=== PATIENT | male | born 1955 | race Caucasian/White ===

== ENCOUNTER 2016-09-25 11:54 | Day surgery (SDC) | payer BC ==
[~2016-09-25 11:54] MED LIST: NORMAL SALINE 1,000 ML IV PRN
--- OUTSIDE RECORDS SUMMARY | 2016-09-25 11:58 | XMS REPORT | Continuity of Care Document ---
:1955 Author Organization [employer] [place] [address] Care Team Providers Name Role Phone Unavailable Primary Care Provider Unavailable Source Comments This disclosure is being made pursuant to the Dejam[employer] program and maynot contain all information available regarding this patient.[employer] Active Allergies and Adverse Reactions Not on File Current Medications Be aware that medications may not be up to date as of this document. Alwaysverify current medications with the patient. Not on file Active Problems Not on file Social History Tobacco Use Types Packs/Day Years Used Date Never Assessed Plan of Care Health Maintenance Due Date Last Done Comments Retired-Pertussis Vaccine Adult 01/02/1975 Retired-Tetanus Vaccine Adult 01/02/1975 Colonoscopy 01/02/2006 Well Adult Visit 01/02/2006 Retired-INFLUENZA VACCINE 01/31/2015 Results from Last 3 Months Not on file
--- OUTSIDE RECORDS SUMMARY | 2016-09-25 11:58 | XMS REPORT | Continuity of Care Document ---
:1955 Author Organization [facility] ([facility]) [place] [address] Phone [phone] Care Team Providers Name Role Phone Tyron Limon Primary Care Provider [phone] Source Comments This disclosure is being made pursuant to the Care Everywhere program, applicable federal and state laws, and may not contain all informaitonavailable regarding this patient.[facility] ([facility]) Active Allergies and Adverse Reactions Allergen Noted Date Severity Reactions Comments Penicillins 10/14/2008 Rash Current Medications Prescription Sig. Disp. Refills Start Date End Date Status atorvastatin take 80 mg by mouth Active (LIPITOR) 80 mg daily. tablet OMEGA-3 ACID ETHYL take 4 Caps by mouth Active ESTERS (LOVAZA PO) daily. indomethacin (INDOCIN take 1 Cap by mouth 2 60 Cap 11 10/14/2008 Active SR) 75 mg SR capsule times daily as needed. Indications: Gout clopidogrel (PLAVIX) take 75 mg by mouth Active 75 mg tablet daily. metoPROLol take 12.5 mg by mouth Active (LOPRESSOR) 25 mg 2 times daily. tablet aspirin 325 mg EC take 325 mg by mouth Active tablet daily. allopurinol Take 1.5 Tabs by mouth 45 Tab 11 09/25/2009 Active (ZYLOPRIM) 300 mg daily. Indications: tablet Gouty Arthritis, Hyperuricemia colchicine 0.6 mg Take 1 Tab by mouth 30 Tab 11 09/25/2009 Active tablet daily. (Stop if diarrhea occurs), Indications: Gout Prevention Active Problems Problem Noted Date Coronary artery disease 04/04/2009 Overview: New chest pain in January 2009, now s/p angiogram and stent placement (LAD and L main?), with subsequent resolution of chest pain. (Dr. Balta [place]). Hyperuricemia 10/14/2008 Hyperlipidemia 10/14/2008 Overview: Treated with a statin (currently Lipitor) since at least 2003. Eczema 10/14/2008 Overview: vs. psoriasis. Chronic since August 2007. 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 RX history: indomethacin prn; colchcine 09/2008 - allopurinol 09/2008- Social History Tobacco Use Types Packs/Day Years Used Date Former Smoker 30 Quit: 02/25/2009 Comments:quit cigarets in 1995; quit cigars 2008. Alcohol Use Drinks/Week oz/Week Comments Yes 20 Cans of beer 10.0 Last Filed Vital Signs Vital Sign Reading Time Taken Blood Pressure 139/72 09/25/2009 10:33 AM CDT Pulse 64 09/25/2009 10:33 AM CDT Temperature 36.7 C (98.1 F) 09/25/2009 10:33 AM CDT Respiratory Rate - - Height 1.88 m (6' 2.02") 10/14/2008 8:35 AM CDT Weight 105.5 kg (232 lb 9.4 oz) 09/25/2009 10:33 AM CDT Body Mass Index 29.85 09/25/2009 10:33 AM CDT Oxygen Saturation - - Plan of Care Health Maintenance Due Date Last Done Comments HCV Screening 1955 Hepatitis B Vaccine (1 of 3 - Primary Series) 1955 Tdap Vaccine 01/02/1967 Lipid Disorder Screening 01/02/1974 MMR Vaccine 01/02/1974 Td Vaccine 01/02/1974 Colonoscopy 01/02/2006 Prostate Cancer Screening 01/02/2006 Influenza Vaccine: Seasonal (#1) 01/01/2016 Zoster Vaccine 2016 Results from Last 3 Months Not on file
[2016-09-25] MEDS ORDERED: RINGERS SOLUTION,LACTATED 1,000 ML IV ONE (12:36)
--- NOTE | 2016-09-25 13:25 | OR ---
Operative Report - Dictated Report Narrative: Procedure performed: TRUS guided prostate biopsy Anesthesia: Mac/IV Preoperative diagnosis : elevated PSA Postoperative diagnosis: Same Description of procedure: Preoperative antibiotics administered. Consent obtained. Patient positioned in the left lateral decubitus position. Probe inserted. Measurements taken. Prostate volume: 60 grams Biopsies were then obtained from either side directed laterally from the base, mid, and apical portions of the gland. Total biopsies right: 6 Total biopsies left: 6 Findings: no concerning hypo/hyperechoic areas, normal SV's Patient tolerated well. Will return to clinic in 7-10 days for counseling or 6 months for repeat PSA, depending on biopsy results. EBL: 0cc Specimen: prostate Condition: tolerated procedure Follow up: 1-2 weeks for counseling
[2016-09-25 14:29] VITALS: BP 156/81
== END 2016-09-25 11:55 | disposition home or self-care (01) ==
LOC: AMB 11:54
PROVIDERS: ATTEND Urology
PROC: 0V903ZX Drainage of Prostate, Percutaneous Approach, Diagnostic (ICD-10-PCS; principal; 2016-09-25 13:00)
DX: R97.20 Elevated prostate specific antigen [PSA] (principal); I10 Essential (primary) hypertension; E78.5 Hyperlipidemia, unspecified; I25.10 Atherosclerotic heart disease of native coronary artery without angina pectoris; F17.200 Nicotine dependence, unspecified, uncomplicated; Z68.28 Body mass index [BMI] 28.0-28.9, adult